=== PATIENT | female | born 1990 ===

== ENCOUNTER 2025-04-27 20:17 | Emergency (ER) | payer OTHER | END 2025-04-28 06:07 | disposition home or self-care (01) | LOC: DL.ED 20:17 | DX: O9A.212 Injury, poisoning and certain other consequences of external causes complicating pregnancy, second trimester (principal); S40.021A Contusion of right upper arm, initial encounter; O45.92 Premature separation of placenta, unspecified, second trimester; Z3A.18 18 weeks gestation of pregnancy; X58.XXXA Exposure to other specified factors, initial encounter; Y93.89 Activity, other specified | CPT/HCPCS: 36415; 73090; 76805; 86850; 86900; 86901; 99284; A9270; 85460 ==